=== PATIENT | female | born 1985 | race Asian ===

== ENCOUNTER 2016-10-11 09:15 | Emergency (ER) | payer MEDICAID ==
[2016-10-11 11:05] LABS: UA SPECIFIC GRAVITY <=1.005 (1.005-1.035); microscopic required? YES; urine erythrocyte TRACE (NEGATIVE)
[2016-10-11 11:26] VITALS: BP 112/64
== END 2016-10-11 11:26 | disposition home or self-care (01) ==
LOC: ED 09:15
PROVIDERS: Emergency Medicine
DX: R30.0 Dysuria (principal); R39.15 Urgency of urination; R35.0 Frequency of micturition; R10.9 Unspecified abdominal pain; Z88.0 Allergy status to penicillin
CPT/HCPCS: J0696

== ENCOUNTER 2016-10-15 14:49 | Emergency (ER) | payer MEDICAID ==
[2016-10-15 14:59] VITALS: BP 102/64
== END 2016-10-15 17:00 | disposition left against medical advice (07) ==
LOC: ED 14:49
DX: Z53.21 Procedure and treatment not carried out due to patient leaving prior to being seen by health care provider (principal)

== ENCOUNTER 2017-09-16 20:16 | Emergency (ER) | payer OTHER ==
[~2017-09-16] VITALS: Ht 160 cm; Wt 60.4 kg
[2017-09-16 21:03] VITALS: Ht 160 cm; Wt 60.4 kg
[2017-09-16 21:44] VITALS: BP 96/66
== END 2017-09-16 21:44 | disposition home or self-care (01) ==
LOC: ED 20:16
DX: M54.16 Radiculopathy, lumbar region (principal); J45.909 Unspecified asthma, uncomplicated; Z88.1 Allergy status to other antibiotic agents

== ENCOUNTER 2018-01-13 11:58 | Emergency (ER) | payer OTHER ==
[~2018-01-13] VITALS: Ht 160 cm; Wt 59.0 kg
[2018-01-13 12:08] VITALS: Ht 160 cm; Wt 59.0 kg
[2018-01-13 13:03] LABS: CALCIUM 8.4 mg/dL (8.5-10.1); CARBON DIOXIDE 26.1 mmol/L (21-32); CHLORIDE SERUM 107 mmol/L (98-107); CREATININE SERUM 0.7 mg/dL (0.6-1.0); GFR1 > 60 mL/min; GLUCOSE SERUM 87 mg/dL (74-106); POTASSIUM SERUM 3.6 mmol/L (3.5-5.1); SODIUM SERUM 142 mmol/L (136-145)
[2018-01-13 13:13] LABS: ALKALINE PHOSPHATASE 44 U/L (46-116); ALT/SGPT 18 U/L (14-59); AMYLASE 43 U/L (25-115); AST/SGOT 12 U/L (15-37); BASOPHIL % 0.7 % (0-2); BILIRUBIN TOTAL 0.45 mg/dL (0.20-1.00); LIPASE 116 IU/L (73-393); PLATELET COUNT 329 x10^3mcL (130-400); RED CELL DISTRIBUTION WIDTH 14.4 % (11.5-14.5); TOTAL PROTEIN, SERUM 7.7 g/dL (6.4-8.2)
[2018-01-13 15:02] VITALS: BP 110/65
== END 2018-01-13 15:02 | disposition home or self-care (01) ==
LOC: ED 11:58
PROVIDERS: Specialist
DX: R10.31 Right lower quadrant pain (principal); R19.7 Diarrhea, unspecified; R11.10 Vomiting, unspecified; J45.909 Unspecified asthma, uncomplicated; F17.210 Nicotine dependence, cigarettes, uncomplicated; Z88.1 Allergy status to other antibiotic agents
CPT/HCPCS: 99406; J1885; J7030